=== PATIENT | female | born 1995 | race American Indian/Alaskan Native ===

== ENCOUNTER 2018-03-24 13:49 | Emergency (ER) | payer BC, MEDICAID ==
[2018-03-24 13:49] VITALS: BMI 40.7
[2018-03-24 14:11] VITALS: RESP 18; TEMP 98.4
--- NOTE | 2018-03-24 14:34 | C.PDOC ---
History Of Present Illness 23 yo female come in for evaluation of left foot pain over big toe after sustained blunt trauma yesterday while at work. Pt reports, pain is localized over injured toe, swelling, bruising noted since yesterday. Otherwise ,pt denies obvious deformity, open wounds, weakness, sensory or vascular deficits to left foot. Ambulate to Ed for evaluation, not in any apparent distress. Time Seen by Provider: 03/24/18 14:31 Chief Complaint (Nursing): Lower Extremity Problem/Injury History Per: Patient Past Medical History Reviewed: Historical Data, Nursing Documentation, Vital Signs Vital Signs: Last Vital Signs Temp 98.4 F 03/24/18 14:09 Pulse 78 03/24/18 14:09 Resp 18 03/24/18 14:09 BP 128/80 03/24/18 14:09 Pulse Ox 98 03/24/18 14:09 - Medical History PMH: No Chronic Diseases Family History: States: No Known Family Hx - Social History Hx Tobacco Use: Yes Hx Alcohol Use: No Hx Substance Use: No - Immunization History Hx Tetanus Toxoid Vaccination: No Hx Influenza Vaccination: No Hx Pneumococcal Vaccination: No Review Of Systems Except As Marked, All Systems Reviewed And Found Negative. Constitutional: Negative for: Fever, Chills Musculoskeletal: Positive for: Foot Pain Skin: Negative for: Rash Neurological: Negative for: Weakness, Numbness Physical Exam - Physical Exam Appears: Well, Non-toxic, No Acute Distress Skin: Normal Color, Warm, No Rash Head: Atraumatic, Normacephalic Extremity: Normal ROM (left foot), Tenderness (over Left 1st proximal phalanx with mild diffuse edema, scant ecchymoses. No open owunds, no palpable deformity.), Capillary Refill (Less than 2sec to left foot), No Deformity Pulses: Left Dorsalis Pedis: Normal Neurological/Psych: Oriented x3, Normal Speech, Normal Motor, Normal Sensation, Normal Reflexes ED Course And Treatment O2 Sat by Pulse Oximetry: 98 - Other Rad Left foot X-Ray: Interpreted by Me, Viewed By Me Interpretation: (+) 1st left proximal phalanx fx, interphalangeal Progress Note: On re-eval, pt is afebrile, hemodynamicaly stable. Non-toxic. Left foot: (+) tenderness over left 1st proximal phalanx with diffuse edema, scant ecchymoses. NO palpable deformity. FAROM, no neurovascular deficits. Imaging review (+) fx distal aspect 1st proximal phalanx. Narendra tape applied to left 1-2 toes, cast shoe applied to left foot. Pt advised, ref. to f/u with Podiatry Clinic for further evaluation/tx. return if any new changes. Disposition Counseled Patient/Family Regarding: Studies Performed, Diagnosis, Need For Followup, Rx Given - Disposition Referrals: [facility] [Outside] Disposition: HOME/ ROUTINE Disposition Time: 15:03 Condition: STABLE Additional Instructions: Narendra tape, cast shoe to Left foot for 2 weeks Follow up with Podiatry clinic on Tuesday from NOON-3PM for re-evaluation. return to ED if any worsening or new changes. Prescriptions: traMADol [Ultram] 50 mg PO Q12 #10 tab Instructions: Toe Fracture Forms: [facility] (Faroese), Work Excuse - Clinical Impression Clinical Impression: Toe fracture
--- NOTE | 2018-03-24 15:03 | RAD ---
Date of service: 03/24/2018 PROCEDURE: Left Foot Radiographs. HISTORY: injury COMPARISON: None. FINDINGS: BONES: Bone alignment and mineralization are normal. There is no acute displaced fracture or bone destruction. JOINTS: Normal. SOFT TISSUES: Normal. OTHER FINDINGS: None. IMPRESSION: No acute fracture or dislocation.
[2018-03-24 16:04] VITALS: BP 120/75; PULSE 72; O2SAT 99
== END 2018-03-24 16:04 | disposition home or self-care (01) ==
LOC: C.ER 13:49
DX: S92.412A Displaced fracture of proximal phalanx of left great toe, initial encounter for closed fracture (principal); X58.XXXA Exposure to other specified factors, initial encounter; Y99.0 Civilian activity done for income or pay; Z72.0 Tobacco use

== ENCOUNTER 2018-04-11 13:18 | Emergency (ER) | payer BC, MEDICAID ==
[2018-04-11 13:18] VITALS: BMI 40.7
[2018-04-11 13:30] VITALS: BP 125/81; PULSE 81; RESP 20; TEMP 98.5; O2SAT 97
--- NOTE | 2018-04-11 13:35 | C.PDOC ---
History Of Present Illness 23 year old female presents to the ED for evaluation of pain to the back of the neck for 3 days. Patient reports pain is R sided posterior neck pain that radiates to the base of her head. She reports that the pain is worse with movement. The patient states she does not have a headache but feels neck spasms that send pain to her head. Denies trauma, shortness of breath, vision changes, ear pain, throat pain, headache, nausea, vomiting, numbness, tingling, and any other associated symptoms. She reports that she had a fever last week but that the last day she has not had fever in the last 2 days Time Seen by Provider: 04/11/18 13:34 Chief Complaint (Nursing): Headache History Per: Patient History/Exam Limitations: no limitations Onset/Duration Of Symptoms: Days Current Symptoms Are (Timing): Still Present Past Medical History Reviewed: Historical Data, Nursing Documentation, Vital Signs Vital Signs: Last Vital Signs Temp 98.5 F 04/11/18 13:27 Pulse 81 04/11/18 13:27 Resp 20 04/11/18 13:27 BP 125/81 04/11/18 13:27 Pulse Ox 97 04/11/18 13:27 Family History: States: Unknown Family Hx - Social History Hx Tobacco Use: Yes Hx Alcohol Use: No Hx Substance Use: No - Immunization History Hx Tetanus Toxoid Vaccination: No Hx Influenza Vaccination: No Hx Pneumococcal Vaccination: No Review Of Systems Constitutional: Positive for: Fever ( now resolved) Eyes: Negative for: Vision Change ENT: Negative for: Ear Pain, Throat Pain Cardiovascular: Negative for: Chest Pain, Palpitations, Edema, Light Headedness Respiratory: Negative for: Shortness of Breath, SOB with Excertion, Wheezing Gastrointestinal: Negative for: Nausea, Vomiting, Abdominal Pain, Diarrhea, Constipation Genitourinary: Negative for: Dysuria Musculoskeletal: Positive for: Neck Pain (right sided pain to the back of the neck.) Neurological: Negative for: Weakness, Numbness, Incoordination, Change in Speech, Confusion, Seizures, Altered Mental Status, Headache, Dizziness Physical Exam - Physical Exam Appears: Well, Non-toxic Skin: Normal Color, Warm, Dry Head: Atraumatic, Normacephalic Eye(s): bilateral: Normal Inspection, PERRL Ear(s): Bilateral: Normal Throat: Normal, No Erythema, No Exudate, Other (enlarged tonsils. ) Neck: Normal ROM, Paracervical Tenderness (right-sided., pain produced when moving head from side to side), Supple Chest: Symmetrical, No Deformity Cardiovascular: Rhythm Regular, No Murmur Respiratory: Normal Breath Sounds, No Rales, No Rhonchi, No Wheezing Gastrointestinal/Abdominal: Soft, No Tenderness Back: Normal Inspection, No CVA Tenderness Extremity: Normal ROM Neurological/Psych: Oriented x3, Normal Speech, Normal Motor, Normal Sensation, Normal Reflexes Gait: Steady ED Course And Treatment O2 Sat by Pulse Oximetry: 97 (RA) Pulse Ox Interpretation: Normal Medical Decision Making Medical Decision Making: Plan: -Toradol Valium Patient is afebrile and well appearing in the ED. She has supple neck but palpable muscle spasm. After medication she feels better. She was given detaileed return instructions. Disposition - Disposition Disposition: HOME/ ROUTINE Disposition Time: 14:23 Condition: GOOD Additional Instructions: Follow-up with PMD within 2 days. Return to ED if condition worsens. Flexeril for muscle spasm Prescriptions: Cyclobenzaprine [Flexeril] 5 mg PO TID PRN #20 tab PRN Reason: Muscle Spasm Instructions: Neck Pain, Muscle Spasms (DC) Forms: [facility] (Nicaraguan), Work Excuse - Clinical Impression Clinical Impression: Muscle spasms of neck - Scribe Statement The provider has reviewed the documentation as recorded by the Scribe (Kaye Chris) Provider Attestation: All medical record entries made by the Scribe were at my direction and personally dictated by me. I have reviewed the chart and agree that the record accurately reflects my personal performance of the history, physical exam, medical decision making, and the department course for this patient. I have also personally directed, reviewed, and agree with the discharge instructions and disposition.
== END 2018-04-11 14:36 | disposition home or self-care (01) ==
LOC: C.ER 13:18
DX: M62.838 Other muscle spasm (principal); Z72.0 Tobacco use
CPT/HCPCS: 96372; 99284; J1885

== ENCOUNTER 2018-06-13 05:02 | Emergency (ER) | payer OTHER, MEDICAID ==
[2018-06-13 05:03] VITALS: BMI 40.7
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
[2018-06-13 07:28] VITALS: BP 104/68; PULSE 73; RESP 18; TEMP 98
--- NOTE | 2018-06-13 11:05 | RAD ---
Date of service: 06/13/2018 PROCEDURE: Cervical Spine Radiographs. HISTORY: Pain. COMPARISON: None available. FINDINGS: BONES: Straightening of the normal cervical lordosis may be related to muscle spasm or positioning. Cervical spine is not visualized beyond C6 on lateral view. Alignment otherwise appears maintained. No acute displaced fracture identified. Dens tip partially obscured. DISC SPACES: Unremarkable. SOFT TISSUES: Unremarkable. No prevertebral soft tissue swelling. OTHER FINDINGS: None. IMPRESSION: Dens tip partially obscured. Cervical spine not visualized beyond C6 on the lateral view. Straightening of the normal cervical lordosis may be related to muscle spasm or positioning. No acute displaced fracture identified.
[2018-06-17 18:15] VITALS: O2SAT 98
== END 2018-06-13 07:35 | disposition home or self-care (01) ==
LOC: C.ER 05:02
DX: S39.012A Strain of muscle, fascia and tendon of lower back, initial encounter (principal); S13.4XXA Sprain of ligaments of cervical spine, initial encounter; V77.5XXA Driver of bus injured in collision with fixed or stationary object in traffic accident, initial encounter; Y92.410 Unspecified street and highway as the place of occurrence of the external cause; Z72.0 Tobacco use
CPT/HCPCS: 72040; 96372; 99284; J1885